=== PATIENT | female | born 1960 | race Caucasian/White ===

== ENCOUNTER → 2016-09-10 | Outpatient (CLI) | payer BC ==
--- NOTE | 2016-09-20 11:28 | MM ---
Reason for exam: screening (asymptomatic). Last mammogram was performed 4 years and 7 months ago. History: Patient is postmenopausal. Family history of breast cancer in mother and breast cancer in paternal grandmother. Benign excisional biopsy of the left breast, 1996. Physical Findings: A clinical breast exam by your physician is recommended on an annual basis and results should be correlated with mammographic findings. MG Screening Mammo w CAD Bilateral CC and MLO view(s) were taken. Prior study comparison: February 20, 2012, mammogram, performed at [facility]. August 12, 2011, mammogram, performed at [facility]. The breast tissue is extremely dense which could obscure a lesion on mammography. Benign calcifications. There is chronic nodularity bilaterally. There is no dominant lesion. ASSESSMENT: Benign, BI-RAD 2 RECOMMENDATION: Routine screening mammogram of both breasts in 1 year.
== END | disposition home or self-care (01) ==
LOC: RADMAMWWP 09:18
PROVIDERS: ATTEND Family Medicine
DX: Z12.31 Encounter for screening mammogram for malignant neoplasm of breast (principal)

== ENCOUNTER 2020-10-18 12:58 | Emergency (ER) | payer BC ==
[2020-10-18 13:09] VITALS: RESP 18; TEMP 98
--- NOTE | 2020-10-18 13:59 | ED ---
General Adult HPI - General Chief complaint: Fall Stated complaint: Fall, dizziness Time Seen by Provider: 10/18/20 13:11 Source: patient, RN notes reviewed Mode of arrival: ambulatory Limitations: no limitations - History of Present Illness Initial comments: 39-year-old female presents to the emergency room for a chief complaint of fall. Patient was standing on a ladder 5 feet up. She was using a supervisor power reactor. She reports the kickback from the supervisor power reactor caused her to fall backwards and she hit her head. She did not lose consciousness. Patient is complaining of pain to the back of the head and neck pain. No vomiting. She also has an abrasion and pain to the right elbow.Patient has no other complaints at this time including shortness of breath, chest pain, abdominal pain, nausea or vomiting, headache, or visual changes. - Related Data Allergies Allergy/AdvReac Type Severity Reaction Status Date / Time No Known Allergies Allergy Verified 10/18/20 13:08 Review of Systems ROS Statement: Those systems with pertinent positive or pertinent negative responses have been documented in the HPI. ROS Other: All systems not noted in ROS Statement are negative. Past Medical History Past Medical History: No Reported History History of Any Multi-Drug Resistant Organisms: None Reported Past Surgical History: No Surgical Hx Reported Past Psychological History: No Psychological Hx Reported Smoking Status: Never smoker Past Alcohol Use History: Occasional Past Drug Use History: None Reported General Exam Limitations: no limitations General appearance: alert, in no apparent distress Head exam: Absent: atraumatic (Patient has a large contusion noted to the posterior parietal scalp. No lacerations.) Eye exam: Present: normal appearance, PERRL, EOMI. Absent: scleral icterus, conjunctival injection, periorbital swelling ENT exam: Present: normal exam, mucous membranes moist Neck exam: Present: other (C-collar in place). Absent: tenderness (No cervical spine tenderness) Respiratory exam: Present: normal lung sounds bilaterally. Absent: respiratory distress, wheezes, rales, rhonchi, stridor Cardiovascular Exam: Present: regular rate, normal rhythm, normal heart sounds. Absent: systolic murmur, diastolic murmur, rubs, gallop, clicks GI/Abdominal exam: Present: soft, normal bowel sounds. Absent: distended, tenderness, guarding, rebound, rigid Back exam: Absent: CVA tenderness (R), CVA tenderness (L), vertebral tenderness (No thoracic or lumbar spine tenderness) Neurological exam: Present: alert, oriented X3, other (GCS 15) Course Vital Signs 10/18/20 13:00 Temperature 98 F Pulse Rate 92 Respiratory 18 Rate Blood Pressure 168/96 O2 Sat by Pulse 96 Oximetry Medical Decision Making - Medical Decision Making Vitals are stable. Patient is well-appearing. However she does have a contusion noted to the posterior parietal scalp. C-collar in place however no C-spine tenderness. CT brain and C-spine are negative for acute fracture or hemorrhage. C-spine cleared. X-ray of the right elbow is negative. At this time is suspect patient likely has a concussion. I recommend she refrain from any contact or exertional activity and rest as much as possible over the next several days. She should follow up with her doctor. 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 Recommended avoiding Motrin. She declines zofran. She will return here for any worsening symptoms. Disposition Clinical Impression: Concussion, Hematoma of scalp, Fall Disposition: HOME SELF-CARE Condition: Good Instructions (If sedation given, give patient instructions): Concussion (ED) Additional Instructions: Take Tylenol for pain. Make sure to rest as much as possible over the next several days. Follow-up with your doctor. Return to the emergency room for any worsening symptoms. Is patient prescribed a controlled substance at d/c from ED?: No Referrals: Ki Maloney MD [Primary Care Provider] - 1-2 days Time of Disposition: 15:03
--- NOTE | 2020-10-18 14:21 | CT ---
EXAMINATION TYPE: CT brain cspine wo con DATE OF EXAM: 10/18/2020 COMPARISON: None HISTORY: Fall from [address] DLP: 1163.3 mGycm Automated exposure control for dose reduction was used. Ventricles have normal size. There is no mass effect nor midline shift. There is no sign of intracran ial hemorrhage. Calvarium is intact. Skull base is intact. Cervical vertebra have normal alignment. Disc spaces are fairly normal. There is minor spurring at C5 -6. Facet joints are intact. IMPRESSION: Mild degenerative disc changes at C5-6. No fracture. Negative CT scan of the brain.
--- NOTE | 2020-10-18 14:27 | XR ---
EXAMINATION TYPE: XR elbow complete RT DATE OF EXAM: 10/18/2020 COMPARISON: NONE HISTORY: Pain TECHNIQUE: 3 views FINDINGS: I see no fracture nor dislocation. Joint spaces are normal. There is no sign of elbow joint effusion. IMPRESSION: Negative right elbow exam.
[2020-10-18 15:16] VITALS: BP 132/88; PULSE 84
== END 2020-10-18 15:21 | disposition home or self-care (01) ==
LOC: EC 12:58
DX: S06.0X0A Concussion without loss of consciousness, initial encounter (principal); S00.03XA Contusion of scalp, initial encounter; R40.2362 Coma scale, best motor response, obeys commands, at arrival to emergency department; R40.2142 Coma scale, eyes open, spontaneous, at arrival to emergency department; R40.2252 Coma scale, best verbal response, oriented, at arrival to emergency department; W11.XXXA Fall on and from ladder, initial encounter; Y93.89 Activity, other specified
CPT/HCPCS: 70450; 72125; 99284